=== PATIENT | female | born 1960 | race Asian ===

== ENCOUNTER 2018-08-16 09:20 | Day surgery (SDC) | payer OTHER ==
[2018-08-15 09:07] VITALS: BMI 25.6
[2018-08-16 09:44] VITALS: TEMP 97.8
[2018-08-16 11:13] VITALS: PULSE 60
[2018-08-16 11:46] VITALS: BP 114/64
--- NOTE | 2018-08-17 13:43 | PATH ---
Surgical Pathology Report Patient Name: ARLIN CHEN [facility]. Rec. #: [id number] /Age/Gender: 1960 (Age: 57) / F Account: [id number] Location: U-ENDOSCOPY Taken: 08/16/2018 Received: 08/16/2018 Reported: 08/17/2018 Physicians: Feliz Moore D.O. Specimen(s) Received A: ANTRUM ULCERS B: ANTRUM GASTRIC C: BODY Clinical History Abdominal pain Postoperative diagnosis: Gastritis, antral ulcers Final Diagnosis A. STOMACH, ANTRAL ULCERS, BIOPSY: GASTRIC ANTRAL MUCOSA WITH REACTIVE GASTROPATHY AND FOCAL MILD CHRONIC GASTRITIS. IMMUNOSTAIN FOR H. PYLORI IS NEGATIVE. B. STOMACH, ANTRUM, BIOPSY: GASTRIC ANTRAL MUCOSA WITH MILD CHRONIC GASTRITIS. IMMUNOSTAIN FOR H. PYLORI IS NEGATIVE. C. STOMACH, BODY, BIOPSY: GASTRIC FUNDIC MUCOSA WITH MILD CHRONIC GASTRITIS. IMMUNOSTAIN FOR H. PYLORI IS NEGATIVE. Electronically Signed Chance Oreilly M.D. Gross Description A. Received in formalin, labeled "biopsy antral ulcers" are 4 prasad, irregular portions of soft tissue ranging from 0.1-0.6 cm. in greatest dimension. The specimens are submitted in toto in one cassette. B. Received in formalin, labeled "biopsy antrum" is a prasad, irregular portion of soft tissue measuring 0.4 cm. in greatest dimension. The specimen is submitted in toto in one cassette. C. Received in formalin, labeled "biopsy body" are 3 prasad, irregular portions of soft tissue ranging from 0.2-0.5 cm. in greatest dimension. The specimens are submitted in toto in one cassette. /08/16/2018 saudi08/16/2018
== END 2018-08-16 12:18 | disposition home or self-care (01) ==
LOC: JASU-ENDO 09:20
PROVIDERS: ATTEND Internal Medicine Gastroenterology
PROC: 0DB68ZX Excision of Stomach, Via Natural or Artificial Opening Endoscopic, Diagnostic (ICD-10-PCS; principal; 2018-08-16 11:15)
DX: K25.9 Gastric ulcer, unspecified as acute or chronic, without hemorrhage or perforation (principal); K57.10 Diverticulosis of small intestine without perforation or abscess without bleeding
CPT/HCPCS: 88305-TC; 88342-TC

== ENCOUNTER 2018-10-20 08:07 | Day surgery (SDC) | payer OTHER | END 2018-10-20 11:15 | disposition home or self-care (01) | LOC: JASU-ENDO 08:07 ==

== ENCOUNTER 2021-11-11 04:36 | Day surgery (SDC) | payer BC ==
[2021-11-05 16:26] VITALS: BMI 22.8
[2021-11-11 11:20] VITALS: TEMP 98.7
[2021-11-11 11:44] VITALS: BP 113/64; PULSE 54
== END 2021-11-11 12:39 | disposition home or self-care (01) ==
LOC: JASU-ENDO 04:36
PROVIDERS: ATTEND Internal Medicine Gastroenterology
PROC: 0DBK8ZX Excision of Ascending Colon, Via Natural or Artificial Opening Endoscopic, Diagnostic (ICD-10-PCS; principal; 2021-11-11 09:45)
DX: D12.2 Benign neoplasm of ascending colon (principal); K64.8 Other hemorrhoids; K63.89 Other specified diseases of intestine
CPT/HCPCS: 88305-TC